=== PATIENT | male | born 1995 | race Caucasian/White ===

== ENCOUNTER 2020-01-04 08:23 | Emergency (ER) | payer OTHER ==
[2020-01-04 08:30] VITALS: BP 122/73; PULSE 93; RESP 18; TEMP 97.8
[2020-01-04] MEDS ORDERED: IBUPROFEN 600 MG TAB PO STA (08:40)
--- NOTE | 2020-01-04 08:45 | ED ---
Extremity Problem HPI - General Chief complaint: Extremity Problem,Nontraumatic Stated complaint: tingling in hands and arms Time Seen by Provider: 01/04/20 08:32 Source: patient Mode of arrival: ambulatory Limitations: no limitations - History of Present Illness Initial comments: 24 year-old male patient presents to the emergency department today for ev aluation of tingling and numbness to the bilateral hands and arms. Patient states his been going on for a little over a week. Patient states that the symptoms are located in his first 3 fingers on each hand. Denies any weakness to the hands. Denies any recent head injury. Denies neck pain. States they discomfort in his arms goes up to about the elbow region. 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 Patient denies any recent rash, fever, chills, cough, shortness of breath, chest pain, abdominal pain, nausea, vomiting, diarrhea, constipation, back pain, dizziness, hematuria, dysuria, urinary urgency, urinary frequency, headache, visual changes, or any other complaints. - Related Data Previous Rx's Medication Instructions Recorded Ibuprofen [Motrin] 600 mg PO Q8HR PRN #30 tab 01/04/20 methylPREDNISolone [Medrol Dose 4 mg PO DIRECTED #1 pack 01/04/20 Pack] Allergies Allergy/AdvReac Type Severity Reaction Status Date / Time No Known Allergies Allergy Verified 01/04/20 08:30 Review of Systems ROS Statement: Those systems with pertinent positive or pertinent negative responses have been documented in the HPI. ROS Other: All systems not noted in ROS Statement are negative. Past Medical History Past Medical History: No Reported History History of Any Multi-Drug Resistant Organisms: None Reported Past Surgical History: No Surgical Hx Reported Past Psychological History: No Psychological Hx Reported Smoking Status: Current every day smoker Past Alcohol Use History: Daily Past Drug Use History: Marijuana General Exam Limitations: no limitations General appearance: alert, in no apparent distress, other (This is a well- developed, well-nourished adult male patient in no acute distress. Vital signs upon presentation are temperature 97.8F, pulse 93, respirations 18, blood pressure 122/73, pulse ox 97% on room air.) ENT exam: Present: normal exam, normal oropharynx, mucous membranes moist Respiratory exam: Present: normal lung sounds bilaterally. Absent: respiratory distress, wheezes, rales, rhonchi, stridor Cardiovascular Exam: Present: regular rate, normal rhythm, normal heart sounds. Absent: systolic murmur, diastolic murmur, rubs, gallop, clicks GI/Abdominal exam: Present: soft, normal bowel sounds. Absent: distended, tenderness, guarding, rebound, rigid Neurological exam: Present: alert, oriented X3, CN II-XII intact, other (Strength in all 4 extremities is 5/5.) Psychiatric exam: Present: normal affect, normal mood Skin exam: Present: warm, dry, intact, normal color. Absent: rash Course Vital Signs 01/04/20 08:27 Temperature 97.8 F Pulse Rate 93 Respiratory 18 Rate Blood Pressure 122/73 O2 Sat by Pulse 97 Oximetry Medical Decision Making - Medical Decision Making 24-year-old male patient presents to the emergency department today for evaluation of tingling and numbness to the bilateral hands and arms. Physical examination did reveal normal neurovascular status, normal strength. He is afebrile normal vital signs. Denies headache and blurred vision, or double vision. He is neurologically intact with no focal deficits. We did discuss radial nerve inflammation as a cause for his symptoms. We'll start anti- inflammatory and Medrol Dosepak. To be discharged follow up with his primary care physician for recheck in 1-2 days. Return parameters were discussed in detail. He verbalizes understanding and agrees with this plan. Disposition Clinical Impression: Radial nerve compression Disposition: HOME SELF-CARE Condition: Good Instructions (If sedation given, give patient instructions): Paresthesia (ED) Additional Instructions: Take medications as directed. Follow up with your primary care physician for recheck in 1-2 days. Return to the emergency department for further evaluation for any new, worsening, or concerning symptoms. Prescriptions: methylPREDNISolone [Medrol Dose Pack] 4 mg PO DIRECTED #1 pack Ibuprofen [Motrin] 600 mg PO Q8HR PRN #30 tab PRN Reason: Pain Is patient prescribed a controlled substance at d/c from ED?: No Referrals: None,Stated [Primary Care Provider] - 1-2 days Time of Disposition: 08:42
== END 2020-01-04 09:02 | disposition home or self-care (01) ==
LOC: EC 08:23
DX: G56.30 Lesion of radial nerve, unspecified upper limb (principal); F17.200 Nicotine dependence, unspecified, uncomplicated
CPT/HCPCS: 99283

== ENCOUNTER 2023-01-18 17:30 | Emergency (ER) | payer OTHER ==
[2023-01-18 18:00] VITALS: RESP 18
--- NOTE | 2023-01-18 18:55 | ED ---
General Adult HPI - General Chief complaint: Extremity Injury, Lower Stated complaint: R foot pain Time Seen by Provider: 01/18/23 18:45 Source: patient, RN notes reviewed Mode of arrival: ambulatory Limitations: no limitations - History of Present Illness Initial comments: Patient is a pleasant 27-year-old male presenting to the emergency department wi th concerns with right heel pain. Onset of symptoms was yesterday. 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 Patient states no radiation of pain. Area of discomfort is the plantar side of the bottom of the heel, towards the middle. No weakness. No redness or swelling. No history of similar symptoms previously. No trauma. - Related Data Previous Rx's Medication Instructions Recorded Ibuprofen [Motrin] 600 mg PO Q8HR PRN #30 tab 01/04/20 methylPREDNISolone [Medrol Dose 4 mg PO DIRECTED #1 pack 01/04/20 Pack] Allergies Allergy/AdvReac Type Severity Reaction Status Date / Time No Known Allergies Allergy Verified 01/18/23 17:56 Review of Systems ROS Statement: Those systems with pertinent positive or pertinent negative responses have been documented in the HPI. ROS Other: All systems not noted in ROS Statement are negative. Constitutional: Denies: fever Eyes: Denies: eye pain ENT: Denies: ear pain Respiratory: Denies: cough Cardiovascular: Denies: chest pain Endocrine: Denies: fatigue Gastrointestinal: Denies: abdominal pain Genitourinary: Denies: dysuria Musculoskeletal: Reports: as per HPI Past Medical History Past Medical History: No Reported History History of Any Multi-Drug Resistant Organisms: None Reported Past Surgical History: No Surgical Hx Reported Past Psychological History: No Psychological Hx Reported Smoking Status: Current every day smoker Past Alcohol Use History: Occasional Past Drug Use History: Marijuana General Exam Limitations: no limitations General appearance: alert, in no apparent distress Head exam: Present: normocephalic Eye exam: Present: normal appearance Neck exam: Present: normal inspection Respiratory exam: Present: normal lung sounds bilaterally Cardiovascular Exam: Present: regular rate, normal rhythm Extremities exam: Present: tenderness (Mild tenderness on the plantar side of the right mid heel. No swelling. No erythema. Distally the extremity is neurovascular intact) Neurological exam: Present: alert. Absent: motor sensory deficit Psychiatric exam: Present: normal affect, normal mood Skin exam: Present: normal color Course Vital Signs 01/18/23 17:56 Temperature 98.4 F Pulse Rate 102 H Respiratory 18 Rate Blood Pressure 121/81 O2 Sat by Pulse 99 Oximetry Medical Decision Making - Medical Decision Making Was pt. sent in by a medical professional or institution ([facility], [facility], urgent care, hospital, or retirement...) When possible be specific @ -No Did you speak to anyone other than the patient for history (EMS, parent, family, police, friend...)? What history was obtained from this source @ -No Did you review nursing and triage notes (agree or disagree)? Why? @ -I reviewed and agree with nursing and triage notes Were old charts reviewed (outside hosp., previous admission, EMS record, old EKG, old radiological studies, urgent care reports/EKG's, retirement records)? Report findings @ -No old charts were reviewed Differential Diagnosis (chest pain, altered mental status, abdominal pain women, abdominal pain men, vaginal bleeding, weakness, fever, dyspnea, syncope, headache, dizziness, GI bleed, back pain, seizure, CVA, palpatations, mental health, musculoskeletal)? @ -not applicable EKG interpreted by me (3pts min.). @ -As above X-rays interpreted by me (1pt min.). @ -Foot x-ray does not show acute abnormality CT interpreted by me (1pt min.). @ -None done U/S interpreted by me (1pt. min.). @ -None done What testing was considered but not performed or refused? (CT, X-rays, U/S, labs)? Why? @ -None What meds were considered but not given or refused? Why? @ -None Did you discuss the management of the patient with other professionals (professionals i.e. [facility], [facility], lab, RT, psych nurse, licensed social worker, director of financial planning, teacher, freedom of information officer, case assembler)? Give summary @ -No Was smoking cessation discussed for >3mins.? @ -No Was critical care preformed (if so, how long)? @ -No Were there social determinants of health that impacted care today? How? (Homelessness, low income, unemployed, alcoholism, drug addiction, transportation, low edu. Level, literacy, decrease access to med. care, assisted, rehab)? @ -No Was there de-escalation of care discussed even if they declined (Discuss DNR or withdrawal of care, Hospice)? DNR status @ -No What co-morbidities impacted this encounter? (DM, HTN, Smoking, COPD, CAD, Cancer, CVA, ARF, Chemo, Hep., AIDS, mental health diagnosis, sleep apnea, morbid obesity)? @ -None Was patient admitted / discharged? Hospital course, mention meds given and route, prescriptions, significant lab abnormalities, going to OR and other pertinent info. @ -Patient will be discharged. Patient given work no. Patient advised [id number] anti-inflammatory such as Motrin. Patient also advised foot orthotic. Undiagnosed new problem with uncertain prognosis? @ -No Drug Therapy requiring intensive monitoring for toxicity (Heparin, Nitro, Insulin, Cardizem)? @ -No Were any procedures done? @ -No Diagnosis/symptom? @ -Foot pain Acute, or Chronic, or Acute on Chronic? @ -Acute Uncomplicated (without systemic symptoms) or Complicated (systemic symptoms)? @ -default Side effects of treatment? @ -No Exacerbation, Progression, or Severe Exacerbation? @ -No Poses a threat to life or bodily function? How? (Chest pain, [place], [place], pneumonia, PE, COPD, DKA, ARF, appy, cholecystitis, CVA, Diverticulitis, Homicidal, Suicidal, threat to staff... and all critical care pts) @ -No Disposition Clinical Impression: Foot pain, right Disposition: HOME SELF-CARE Condition: Stable Instructions (If sedation given, give patient instructions): Plantar Fasciitis (ED), Arthralgia (ED), Heel Spur (ED) Additional Instructions: Rest foot. Use orthotics for your work boots. [id number] anti- inflammatory such as Motrin. Please do follow-up with primary care physician in the next couple days for recheck. Return for increased pain, swelling, worsening or change in symptoms or other concerns. Is patient prescribed a controlled substance at d/c from ED?: No Referrals: Ramsey Pickens MD [STAFF PHYSICIAN] - 1-2 days Forms: Work/School Release Time of Disposition: 19:36
--- NOTE | 2023-01-18 19:25 | XR ---
EXAMINATION TYPE: XR foot complete RT DATE OF EXAM: 01/18/2023 7:05 PM INDICATION: Patient age:Male; 27 years old; Reason for study: heel pain; COMPARISON: None TECHNIQUE: The right foot was examined in the AP, oblique, and lateral projections. FINDINGS: No evidence of any acute osseous pathology. No evidence of soft tissue swelling. Joints are preserve d. IMPRESSION: No evidence of acute fracture.
[2023-01-18 19:47] VITALS: BP 118/74; PULSE 95; TEMP 98.1
== END 2023-01-18 19:47 | disposition home or self-care (01) ==
LOC: EC 17:30
DX: M79.671 Pain in right foot (principal); F17.200 Nicotine dependence, unspecified, uncomplicated; F12.90 Cannabis use, unspecified, uncomplicated
CPT/HCPCS: 99283

== ENCOUNTER 2023-03-22 16:27 | Emergency (ER) | payer OTHER ==
--- NOTE | 2023-03-22 16:39 | ED ---
General Adult HPI - General Source: patient Mode of arrival: ambulatory <Oc Ayala - Last Filed: 03/22/23 16:39> - History of Present Illness Quality: aching Consistency: constant Improves with: none Worsens with: none Associated Symptoms: chest pain Treatments Prior to Arrival: none <Ravinder Suresh - Last Filed: 03/25/23 21:47> - General Chief complaint: Recheck/Abnormal Lab/Rx Stated complaint: High BP - History of Present Illness Initial comments: 27 year old male with chief complaint tingling. Patient states today he started to experience numbness in both his arms. States that he was at rest when he started to experience this. Denies any recent injury or trauma. Also notes some heaviness in the middle of his chest. (Oc Ayala) This is a 27-year-old male to the emergency department for evaluation tingling numbness to having both arms headache occasionally with dizziness. Patient believes he is having significantly elevated blood pressure has a new diagnosis and did take his blood pressure be elevated at home. Patient became increasingly anxious presents to the ER for evaluation treatment of blood pressure (Ravinder Suresh) - Related Data Previous Rx's Medication Instructions Recorded Ibuprofen [Motrin] 600 mg PO Q8HR PRN #30 tab 01/04/20 methylPREDNISolone [Medrol Dose 4 mg PO DIRECTED #1 pack 01/04/20 Pack] hydroCHLOROthiazide [Hydrodiuril] 25 mg PO DAILY #60 tab 03/22/23 Allergies Allergy/AdvReac Type Severity Reaction Status Date / Time No Known Allergies Allergy Verified 03/22/23 16:35 Review of Systems ROS Other: All systems not noted in ROS Statement are negative. <Oc Ayala - Last Filed: 03/22/23 16:39> ROS Other: All systems not noted in ROS Statement are negative. <Ravinder Suresh - Last Filed: 03/25/23 21:47> ROS Statement: Those systems with pertinent positive or pertinent negative responses have been documented in the HPI. Past Medical History Past Medical History: No Reported History History of Any Multi-Drug Resistant Organisms: None Reported Past Surgical History: No Surgical Hx Reported Past Psychological History: No Psychological Hx Reported Smoking Status: Current every day smoker Past Alcohol Use History: Occasional Past Drug Use History: Marijuana <Oc Ayala - Last Filed: 03/22/23 16:39> General Exam Limitations: no limitations General appearance: alert, in no apparent distress, obese Head exam: Present: normal inspection Eye exam: Present: normal appearance Neck exam: Present: normal inspection Extremities exam: Present: normal inspection Back exam: Present: normal inspection Neurological exam: Present: alert <Oc Ayala - Last Filed: 03/22/23 16:39> General appearance: alert, in no apparent distress Head exam: Present: atraumatic, normocephalic, normal inspection Eye exam: Present: normal appearance, PERRL, EOMI. Absent: scleral icterus, conjunctival injection, periorbital swelling ENT exam: Present: normal exam, mucous membranes moist Neck exam: Present: normal inspection. Absent: tenderness, meningismus, lymphadenopathy Respiratory exam: Present: normal lung sounds bilaterally. Absent: respiratory distress, wheezes, rales, rhonchi, stridor Cardiovascular Exam: Present: regular rate, normal rhythm, normal heart sounds. Absent: systolic murmur, diastolic murmur, rubs, gallop, clicks GI/Abdominal exam: Present: soft, normal bowel sounds. Absent: distended, tenderness, guarding, rebound, rigid Extremities exam: Present: normal inspection, full ROM, normal capillary refill. Absent: tenderness, pedal edema, joint swelling, calf tenderness Back exam: Present: normal inspection Neurological exam: Present: alert, oriented X3, CN II-XII intact Psychiatric exam: Present: normal affect, normal mood Skin exam: Present: warm, dry, intact, normal color. 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 sent in by a medical professional or institution ([facility], [facility], urgent c are, hospital, or jail...) When possible be specific @ -no Did you speak to anyone other than the patient for history (EMS, parent, family, police, friend...)? What history was obtained from this source @ -no Did you review nursing and triage notes (agree or disagree)? Why? @ -agree Are old charts reviewed (outside hosp., previous admission, EMS record, old EKG, old radiological studies, urgent care reports/EKG's, jail records)? Report findings @ -yes Differential Diagnosis (chest pain, altered mental status, abdominal pain women, abdominal pain men, vaginal bleeding, weakness, fever, dyspnea, syncope, headache, dizziness, GI bleed, back pain, seizure, CVA, palpatations, mental health, musculoskeletal)? @ -prior EKG interpreted by me (3pts min.). @ -yes X-rays interpreted by me (1pt min.). @ -yes CT interpreted by me (1pt min.). @ -no U/S interpreted by me (1pt. min.). @ -no What testing was considered but not performed or refused? (CT, X-rays, U/S, labs)? Why? @ -none What meds were considered but not given or refused? Why? @ -none Did you discuss the management of the patient with other professionals (professionals i.e. [facility], [facility], lab, RT, psych nurse, mental health social worker, manager regional, teacher, patient safety officer, disease case manager)? Give summary @ -no Was smoking cessation discussed for >3mins.? @ -no Was critical care preformed (if so, how long)? @ -no Were there social determinants of health that impacted care today? How? (Homelessness, low income, unemployed, alcoholism, drug addiction, transportation, low edu. Level, literacy, decrease access to med. care, retirement, rehab)? @ -none Was there de-escalation of care discussed even if they declined (Discuss DNR or withdrawal of care, Hospice)? DNR status @ -no What co-morbidities impacted this encounter? (DM, HTN, Smoking, COPD, CAD, Cancer, CVA, ARF, Chemo, Hep., AIDS, mental health diagnosis, sleep apnea, morbid obesity)? @ -none Was patient admitted / discharged? Hospital course, mention meds given and route, prescriptions, significant lab abnormalities, going to OR and other pertinent info. @ - 27 male to the emergency department for evaluation of elevated blood pressure, states he hasn't been feeling significantly well. Although he has no current complaints here in the ER. Patient be started on antihypertensive and can be discharged home Discharge Undiagnosed new problem with uncertain prognosis? @ -no Drug Therapy requiring intensive monitoring for toxicity (Heparin, Nitro, Ins ulin, Cardizem)? @ -no Were any procedures done? @ -no Diagnosis/symptom? @ -Hypertension Acute, or Chronic, or Acute on Chronic? @ -Acute Uncomplicated (without systemic symptoms) or Complicated (systemic symptoms)? @ -Complicated Side effects of treatment? @ -no Exacerbation, Progression, or Severe Exacerbation? @ -exacerbation Poses a threat to life or bodily function? How? (Chest pain, [place], NH, pneumonia, PE, COPD, DKA, ARF, appy, cholecystitis, CVA, Diverticulitis, Homicidal, Suicida l, threat to staff... and all critical care pts) @ -yes (Ravinder Suresh) Reevaluation #5: Differential Chest Pain: Stable Angina, Unstable Angina, STEMI, NSTEMI Aortic Dissection, Pneumothorax, Musculoskeletal, Esophageal Spasm GERD, Cholecystitis, Pancreatitis, Zoster, this is not meant to be an all-inclusive list. (Ravinder Suresh) EKG Findings - EKG Comments: EKG Findings:: EKG is sinus tachycardia 110 PA 149 QRS 85 QTc 400 - EKG Results: EKG: interpreted by ERMD <Ravinder Suresh - Last Filed: 03/25/23 21:47> Medical Decision Making <Oc Ayala - Last Filed: 03/22/23 16:39> - Lab Data Result diagrams: 03/22/23 16:40 03/22/23 16:40 - EKG Data -: EKG Interpreted by Ne - Radiology Data Radiology results: report reviewed (Chest x-rays negative for acute disease), image reviewed <Ravinder Suresh - Last Filed: 03/25/23 21:47> - Medical Decision Making Quicknote portion performed. Signed Oc Ayala PA-C (Oc Ayala) 27 male to the emergency department for evaluation of hypertension. Patient is started on antihypertensive in the ER, follow up with primary care. (Stephanie Suresh) - Lab Data Lab Results 03/22/23 03/22/23 03/22/23 Range/Units 16:40 16:40 16:40 WBC 14.2 H (3.8-10.6) k/uL RBC 5.48 (4.30-5.90) m/uL Hgb 16.7 (13.0-17.5) gm/dL Hct 48.3 (39.0-53.0) % MCV 88.1 (80.0-100.0) fL MCH 30.5 (25.0-35.0) pg MCHC 34.6 (31.0-37.0) g/dL RDW 12.5 (11.5-15.5) % Plt Count 326 (150-450) k/uL MPV 7.2 Neutrophils % 81 % Lymphocytes % 13 % Monocytes % 4 % Eosinophils % 1 % Basophils % 0 % Neutrophils # 11.6 H (1.3-7.7) k/uL Lymphocytes # 1.8 (1.0-4.8) k/uL Monocytes # 0.6 (0-1.0) k/uL Eosinophils # 0.2 (0-0.7) k/uL Basophils # 0.0 (0-0.2) k/uL PT (9.0-12.0) sec INR (<1.2) APTT (22.0-30.0) sec D-Dimer <0.17 (<0.60) mg/L FEU Sodium 136 L (137-145) mmol/L Potassium 4.0 (3.5-5.1) mmol/L Chloride 104 (98-107) mmol/L Carbon Dioxide 23 (22-30) mmol/L Anion Gap 9 mmol/L BUN 7 L (9-20) mg/dL Creatinine 0.84 (0.66-1.25) mg/dL Est GFR (CKD-EPI)AfAm >90 (>60 ml/min/1.73 sqM) Est GFR (CKD-EPI)NonAf >90 (>60 ml/min/1.73 sqM) Glucose 108 H (74-99) mg/dL Calcium 9.6 (8.4-10.2) mg/dL Magnesium 1.4 L (1.6-2.3) mg/dL Total Bilirubin 0.7 (0.2-1.3) mg/dL AST 62 H (17-59) U/L ALT 71 H (4-49) U/L Alkaline Phosphatase 122 (38-126) U/L Troponin I (0.000-0.034) ng/mL Total Protein 7.5 (6.3-8.2) g/dL Albumin 4.4 (3.5-5.0) g/dL Urine Color Urine Appearance (Clear) Urine pH (5.0-8.0) Ur Specific [place] (1.001-1.035) Urine Protein (Negative) Urine Glucose (UA) (Negative) Urine Ketones (Negative) Urine Blood (Negative) Urine Nitrite (Negative) Urine Bilirubin (Negative) Urine Urobilinogen (<2.0) mg/dL Ur Leukocyte Esterase (Negative) Influenza Type A (PCR) (Not Detectd) Influenza Type B (PCR) (Not Detectd) RSV (PCR) (Not Detectd) SARS-CoV-2 (PCR) (Not Detectd) 03/22/23 03/22/23 03/22/23 Range/Units 16:40 19:23 20:58 WBC (3.8-10.6) k/uL RBC (4.30-5.90) m/uL Hgb (13.0-17.5) gm/dL Hct (39.0-53.0) % MCV (80.0-100.0) fL MCH (25.0-35.0) pg MCHC (31.0-37.0) g/dL RDW (11.5-15.5) % Plt Count (150-450) k/uL MPV Neutrophils % % Lymphocytes % % Monocytes % % Eosinophils % % Basophils % % Neutrophils # (1.3-7.7) k/uL Lymphocytes # (1.0-4.8) k/uL Monocytes # (0-1.0) k/uL Eosinophils # (0-0.7) k/uL Basophils # (0-0.2) k/uL PT (9.0-12.0) sec INR (<1.2) APTT (22.0-30.0) sec D-Dimer (<0.60) mg/L FEU Sodium (137-145) mmol/L Potassium (3.5-5.1) mmol/L Chloride (98-107) mmol/L Carbon Dioxide (22-30) mmol/L Anion Gap mmol/L BUN (9-20) mg/dL Creatinine (0.66-1.25) mg/dL Est GFR (CKD-EPI)AfAm (>60 ml/min/1.73 sqM) Est GFR (CKD-EPI)NonAf (>60 ml/min/1.73 sqM) Glucose (74-99) mg/dL Calcium (8.4-10.2) mg/dL Magnesium (1.6-2.3) mg/dL Total Bilirubin (0.2-1.3) mg/dL AST (17-59) U/L ALT (4-49) U/L Alkaline Phosphatase (38-126) U/L Troponin I <0.012 (0.000-0.034) ng/mL Total Protein (6.3-8.2) g/dL Albumin (3.5-5.0) g/dL Urine Color Yellow Urine Appearance Clear (Clear) Urine pH 6.0 (5.0-8.0) Ur Specific [place] 1.021 (1.001-1.035) Urine Protein Trace H (Negative) Urine Glucose (UA) Negative (Negative) Urine Ketones Negative (Negative) Urine Blood Negative (Negative) Urine Nitrite Negative (Negative) Urine Bilirubin Negative (Negative) Urine Urobilinogen 2.0 (<2.0) mg/dL Ur Leukocyte Esterase Negative (Negative) Influenza Type A (PCR) Not Detected (Not Detectd) Influenza Type B (PCR) Not Detected (Not Detectd) RSV (PCR) Not Detected (Not Detectd) SARS-CoV-2 (PCR) Not Detected (Not Detectd) 03/22/23 03/22/23 Range/Units 21:02 21:02 WBC (3.8-10.6) k/uL RBC (4.30-5.90) m/uL Hgb (13.0-17.5) gm/dL Hct (39.0-53.0) % MCV (80.0-100.0) fL MCH (25.0-35.0) pg MCHC (31.0-37.0) g/dL RDW (11.5-15.5) % Plt Count (150-450) k/uL MPV Neutrophils % % Lymphocytes % % Monocytes % % Eosinophils % % Basophils % % Neutrophils # (1.3-7.7) k/uL Lymphocytes # (1.0-4.8) k/uL Monocytes # (0-1.0) k/uL Eosinophils # (0-0.7) k/uL Basophils # (0-0.2) k/uL PT 10.5 (9.0-12.0) sec INR 1.0 (<1.2) APTT 24.3 (22.0-30.0) sec D-Dimer (<0.60) mg/L FEU Sodium (137-145) mmol/L Potassium (3.5-5.1) mmol/L Chloride (98-107) mmol/L Carbon Dioxide (22-30) mmol/L Anion Gap mmol/L BUN (9-20) mg/dL Creatinine (0.66-1.25) mg/dL Est GFR (CKD-EPI)AfAm (>60 ml/min/1.73 sqM) Est GFR (CKD-EPI)NonAf (>60 ml/min/1.73 sqM) Glucose (74-99) mg/dL Calcium (8.4-10.2) mg/dL Magnesium (1.6-2.3) mg/dL Total Bilirubin (0.2-1.3) mg/dL AST (17-59) U/L ALT (4-49) U/L Alkaline Phosphatase (38-126) U/L Troponin I <0.012 (0.000-0.034) ng/mL Total Protein (6.3-8.2) g/dL Albumin (3.5-5.0) g/dL Urine Color Urine Appearance (Clear) Urine pH (5.0-8.0) Ur Specific [place] (1.001-1.035) Urine Protein (Negative) Urine Glucose (UA) (Negative) Urine Ketones (Negative) Urine Blood (Negative) Urine Nitrite (Negative) Urine Bilirubin (Negative) Urine Urobilinogen (<2.0) mg/dL Ur Leukocyte Esterase (Negative) Influenza Type A (PCR) (Not Detectd) Influenza Type B (PCR) (Not Detectd) RSV (PCR) (Not Detectd) SARS-CoV-2 (PCR) (Not Detectd) Disposition <Oc Ayala - Last Filed: 03/22/23 16:39> Is patient prescribed a controlled substance at d/c from ED?: No Time of Disposition: 21:10 <Ravinder Suresh - Last Filed: 03/25/23 21:47> Clinical Impression: Hypertension Disposition: HOME SELF-CARE Condition: Good Instructions (If sedation given, give patient instructions): Hypertension (ED) Prescriptions: hydroCHLOROthiazide [Hydrodiuril] 25 mg PO DAILY #60 tab Referrals: Bereket Dias MD [STAFF PHYSICIAN] - 1-2 days
[2023-03-22 17:19] LABS: Basophils % (A) 0 %; Eosinophils # (A) 0.2 k/uL (0-0.7); Eosinophils % (A) 1 %; HCT 48.3 % (39.0-53.0); HGB 16.7 gm/dL (13.0-17.5); Lymphocytes # (A) 1.8 k/uL (1.0-4.8); Lymphocytes % (A) 13 %; MCH 30.5 pg (25.0-35.0); MCHC 34.6 g/dL (31.0-37.0); MCV 88.1 fL (80.0-100.0); Mean Platelet Volume 7.2; Monocytes # (A) 0.6 k/uL (0-1.0); Monocytes % (A) 4 %; Neutrophils # (A) 11.6 k/uL (1.3-7.7); Neutrophils % (A) 81 %; Platelet Count 326 k/uL (150-450); RBC 5.48 m/uL (4.30-5.90); RDW 12.5 % (11.5-15.5); WBC 14.2 k/uL (3.8-10.6)
[2023-03-22 17:40] LABS: ALT 71 U/L (4-49); AST 62 U/L (17-59); African American GFR (CKD) >90 (>60 ml/min/1.73 sqM); Albumin 4.4 g/dL (3.5-5.0); Alkaline Phosphatase 122 U/L (38-126); Anion Gap 9 mmol/L; Blood Urea Nitrogen 7 mg/dL (9-20); Calcium 9.6 mg/dL (8.4-10.2); Carbon Dioxide 23 mmol/L (22-30); Chloride 104 mmol/L (98-107); Glucose 108 mg/dL (74-99); Magnesium 1.4 mg/dL (1.6-2.3); Non-African American GFR(CKD) >90 (>60 ml/min/1.73 sqM); Sodium 136 mmol/L (137-145); Total Bilirubin 0.7 mg/dL (0.2-1.3); Total Protein 7.5 g/dL (6.3-8.2)
--- NOTE | 2023-03-22 17:49 | XR ---
EXAMINATION TYPE: XR chest 2V DATE OF EXAM: 03/22/2023 5:16 PM CLINICAL INDICATION:Male, 27 years old with history of Chest Pain COMPARISON: Chest radiographs from 03/22/2023 TECHNIQUE: XR chest 2V Frontal and lateral views of the chest. FINDINGS: Lungs/Pleura: There is no evidence of pleural effusion, focal consolidation, or pneumothorax. Pulmonary vascularity: Unremarkable. Heart/mediastinum: Cardiomediastinal silhouette is unremarkable. Musculoskeletal: No acute osseous pathology. IMPRESSION: No acute cardiopulmonary disease/process.
[2023-03-22 21:08] VITALS: TEMP 98.2
[2023-03-22 21:15] LABS: Appearance,Urine Clear (Clear); Bilirubin,Urine Negative (Negative); Blood,Urine Negative (Negative); Color,Urine Yellow; Glucose,Urine (UA) Negative (Negative); Ketones,Urine Negative (Negative); Leukocyte Esterase,Urine Negative (Negative); Nitrite,Urine Negative (Negative); Protein,Urine Trace (Negative); Specific Gravity,Urine 1.021 (1.001-1.035)
[2023-03-22] MEDS ORDERED: hydroCHLOROthiazide 25 MG TAB PO STA (21:19)
[2023-03-22] MEDS ORDERED: MAGNESIUM OXIDE 400 MG TAB PO STA ×2 (21:23)
[2023-03-22 21:24] LABS: Partial Thromboplastin Time 24.3 sec (22.0-30.0); Prothrombin Time 10.5 sec (9.0-12.0)
[2023-03-22 22:24] VITALS: BP 139/94; PULSE 87; RESP 18
== END 2023-03-22 22:24 | disposition home or self-care (01) ==
LOC: EC 16:27
DX: I10 Essential (primary) hypertension (principal); F12.90 Cannabis use, unspecified, uncomplicated; F17.200 Nicotine dependence, unspecified, uncomplicated; Z20.822 Contact with and (suspected) exposure to COVID-19
CPT/HCPCS: 36415; 71046; 80053; 81003; 83735; 84484; 85025; 85379; 85610; 85730; 87636; 93005; 99284

== ENCOUNTER 2023-07-10 17:34 | Emergency (ER) | payer SELFPAY ==
--- NOTE | 2023-07-10 18:06 | ED ---
General Adult HPI - General Source: patient Mode of arrival: ambulatory Limitations: no limitations <Vinod Gupta - Last Filed: 07/10/23 19:43> <Alondra Fregoso - Last Filed: 07/10/23 23:48> - General Chief complaint: Abdominal Pain Stated complaint: Groin Pain Time Seen by Provider: 07/10/23 17:40 - History of Present Illness Initial comments: Dictation was produced using [employer] dictation software. please excuse any grammatical, word or spelling errors. Chief Complaint: 27-year-old male presents with 1 week of abdominal pain and testicular pain History of Present Illness: Patient 27-year-old male who states that for the last week she's been having intermittent episodes of abdominal pain and testicular pain states that his pain seems to be Colin's abdomen rate is down his testicle however he does report that his testicles feel slightly sore. Patient denies any nausea or vomiting. No fever or chills. States that his symptoms seem to be alleviated with lying flat. Seems to bother him more whenever he is in a sitting position. No history of abdominal surgery. The ROS documented in this emergency department record has been reviewed and confirmed by me. Those systems with pertinent positive or negative responses have been documented in the HPI. All other systems are other negative and/or noncontributory. (Vinod Gupta) - Related Data Previous Rx's Medication Instructions Recorded Ibuprofen [Motrin] 600 mg PO Q8HR PRN #30 tab 01/04/20 methylPREDNISolone [Medrol Dose 4 mg PO DIRECTED #1 pack 01/04/20 Pack] hydroCHLOROthiazide [Hydrodiuril] 25 mg PO DAILY #60 tab 03/22/23 Allergies Allergy/AdvReac Type Severity Reaction Status Date / Time No Known Allergies Allergy Verified 03/22/23 16:35 Review of Systems ROS Other: All systems not noted in ROS Statement are negative. <Vinod Gupta - Last Filed: 07/10/23 19:43> ROS Other: All systems not noted in ROS Statement are negative. <Alondra Fregoso - Last Filed: 07/10/23 23:48> ROS Statement: Those systems with pertinent positive or pertinent negative responses have been documented in the HPI. Past Medical History Past Medical History: Hypertension History of Any Multi-Drug Resistant Organisms: None Reported Past Surgical History: No Surgical Hx Reported Past Psychological History: No Psychological Hx Reported Smoking Status: Current every day smoker Past Alcohol Use History: Occasional Past Drug Use History: Marijuana <Vinod Gupta - Last Filed: 07/10/23 19:43> General Exam Limitations: no limitations <Vinod Gupta - Last Filed: 07/10/23 19:43> - General Exam Comments Initial Comments: PHYSICAL EXAM: General Impression: Alert and oriented x3, not in acute distress HEENT: Normocephalic atraumatic, extra-ocular movements intact, pupils equal and reactive to light bilaterally, mucous membranes moist. Cardiovascular: Heart regular rate and rhythm Chest: Able to complete full sentences, no retractions, no tachypnea Abdomen: abdomen soft, non-tender, non-distended, no organomegaly Musculoskeletal: Pulses present and equal in all extremities, no peripheral edema Motor: no focal deficits noted Neurological: CN II-XII grossly intact, no focal motor or sensory deficits noted Skin: Intact with no visualized rashes Psych: Normal affect and mood : Symmetrical testicle, no abnormal testicular lie, no scrotal abnormalities, no groint mass w valsalva (Vinod Gupta) Course Vital Signs 07/10/23 07/10/23 17:35 21:09 Temperature 98.8 F 98.4 F Pulse Rate 90 79 Respiratory 16 16 Rate Blood Pressure 155/98 142/89 O2 Sat by Pulse 99 98 Oximetry Medical Decision Making - Lab Data Result diagrams: 07/10/23 18:33 07/10/23 18:33 <Vinod Gupta - Last Filed: 07/10/23 19:43> - Lab Data Result diagrams: 07/10/23 18:33 07/10/23 18:33 <Alondra Fregoso - Last Filed: 07/10/23 23:48> - Medical Decision Making Was pt. sent in by a medical professional or institution (, PA, FORCE DISPATCHER, urgent care, hospital, or intermediate...) When possible be specific @ -No Did you speak to anyone other than the patient for history (EMS, parent, family, police, friend...)? What history was obtained from this source @ -No Did you review nursing and triage notes (agree or disagree)? Why? @ -I reviewed and agree with nursing and triage notes Were old charts reviewed (outside hosp., previous admission, EMS record, old EKG, old radiological studies, urgent care reports/EKG's, intermediate records)? Report findings @ -No old charts were reviewed Differential Diagnosis (chest pain, altered mental status, abdominal pain women, abdominal pain men, vaginal bleeding, musculoskeletal, weakness, fever, dyspnea, syncope, headache, dizziness, GI bleed, back pain, seizure, CVA, palpatations, mental health)? @ -Differential Abdominal Pain Men: Appendicitis, cholecystitis, diverticulosis, ischemic bowel, pancreatitis, hepatitis, UTI, gastroenteritis, AAA, incarcerated hernia, bowel obstruction, constipation, inflammatory bowel, hepatitis, peptic ulcer disease, splenic infarction, perforated viscus, testicular torsion, this is not meant to be an all-inclusive list EKG interpreted by me (3pts min.). @ -None done X-rays interpreted by me (1pt min.). @ -Abdominal x-rays no acute CT interpreted by me (1pt min.). @ -None done U/S interpreted by me (1pt. min.). @ -None done What testing was considered but not performed or refused? (CT, X-rays, U/S, labs)? Why? @ -None What meds were considered but not given or refused? Why? @ -None Did you discuss the management of the patient with other professionals (professionals i.e. , PA, FORCE DISPATCHER, lab, RT, psych nurse, social insurance administrator, concrete wall grinder operator, teacher, youth liaison officer, keycase assembler)? Give summary @ -No Was smoking cessation discussed for >3mins.? @ -No Was critical care preformed (if so, how long)? @ -No Were there social determinants of health that impacted care today? How? (Homelessness, low income, unemployed, alcoholism, drug addiction, transportation, low edu. Level, literacy, decrease access to med. care, [facility], rehab)? @ -No Was there de-escalation of care discussed even if they declined (Discuss DNR or withdrawal of care, Hospice)? DNR status @ -No What co-morbidities impacted this encounter? (DM, HTN, Smoking, COPD, CAD, Cancer, CVA, ARF, Chemo, Hep., AIDS, mental health diagnosis, sleep apnea, morbid obesity)? @ -None Was patient admitted / discharged? Hospital course, mention meds given and route, prescriptions, significant lab abnormalities, going to OR and other pertinent info. @ -27-year-old male presents to the emergency department for very vague atypical symptoms of abdominal pain. Vital signs are stable. His abdomen is soft. He does complain of a component of testicular pain. No abnormalities on physical exam. Laboratory evaluation obtained. CBC metabolic panel is unremarkable. Abdominal labs are negative. Abdominal x-rays negative. Pending scrotal ultrasound. Patient care will be signed out to Dr. Fregoso for follow-up of ultrasound and disposition planning. Undiagnosed new problem with uncertain prognosis? @ -No Drug Therapy requiring intensive monitoring for toxicity (Heparin, Nitro, Insulin, Cardizem)? @ -No Were any procedures done? @ -No Diagnosis/symptom? Acute, or Chronic, or Acute on Chronic? Uncomplicated (w ithout systemic symptoms) or Complicated (systemic symptoms)? @ -Abdominal Pain, no high-risk features Side effects of treatment? @ -No Exacerbation, Progression, or Severe Exacerbation? @ -No Poses a threat to life or bodily function? How? (Chest pain, [place], [place], pneumonia, PE, COPD, DKA, ARF, appy, cholecystitis, CVA, Diverticulitis, Homicidal, Suicidal, threat to staff... and all critical care pts) @ -No (Vinod Gupta) Patient signed out to me pending ultrasound. Ultrasound demonstrates varicoceles. No signs of torsion. Results are discussed with the patient. Recommended tightfitting briefs. Minimize heavy lifting at this time while acute exacerbation of pain. Follow-up with his primary care doctor for further testing return for any new or worsening symptoms. Patient agreeable and was discharged in stable condition (Alondra Fregoso) - Lab Data Lab Results 07/10/23 07/10/23 07/10/23 Range/Units 18:33 18:33 19:53 WBC 9.8 (3.8-10.6) k/uL RBC 6.00 H (4.30-5.90) m/uL Hgb 17.2 (13.0-17.5) gm/dL Hct 50.7 (39.0-53.0) % MCV 84.6 (80.0-100.0) fL MCH 28.7 (25.0-35.0) pg MCHC 33.9 (31.0-37.0) g/dL RDW 12.1 (11.5-15.5) % Plt Count 350 (150-450) k/uL MPV 7.0 Neutrophils % 67 % Lymphocytes % 23 % Monocytes % 5 % Eosinophils % 1 % Basophils % 1 % Neutrophils # 6.6 (1.3-7.7) k/uL Lymphocytes # 2.3 (1.0-4.8) k/uL Monocytes # 0.5 (0-1.0) k/uL Eosinophils # 0.1 (0-0.7) k/uL Basophils # 0.1 (0-0.2) k/uL Sodium 138 (137-145) mmol/L Potassium 3.5 (3.5-5.1) mmol/L Chloride 99 (98-107) mmol/L Carbon Dioxide 26 (22-30) mmol/L Anion Gap 13 mmol/L BUN 8 L (9-20) mg/dL Creatinine 0.79 (0.66-1.25) mg/dL Est GFR (CKD-EPI)AfAm >90 (>60 ml/min/1.73 sqM) Est GFR (CKD-EPI)NonAf >90 (>60 ml/min/1.73 sqM) Glucose 102 H (74-99) mg/dL Calcium 10.2 (8.4-10.2) mg/dL Total Bilirubin 0.7 (0.2-1.3) mg/dL AST 28 (17-59) U/L ALT 32 (4-49) U/L Alkaline Phosphatase 103 (38-126) U/L Total Protein 8.4 H (6.3-8.2) g/dL Albumin 4.8 (3.5-5.0) g/dL Urine Color Light Yellow Urine Appearance Clear (Clear) Urine pH 6.0 (5.0-8.0) Ur Specific [place] 1.009 (1.001-1.035) Urine Protein Negative (Negative) Urine Glucose (UA) Negative (Negative) Urine Ketones Negative (Negative) Urine Blood Negative (Negative) Urine Nitrite Negative (Negative) Urine Bilirubin Negative (Negative) Urine Urobilinogen <2.0 (<2.0) mg/dL Ur Leukocyte Esterase Negative (Negative) Disposition <Vinod Gupta - Last Filed: 07/10/23 19:43> Is patient prescribed a controlled substance at d/c from ED?: No Time of Disposition: 20:55 <ZenobiaAlondra Kayden - Last Filed: 07/10/23 23:48> Clinical Impression: Abdominal pain, Varicocele Disposition: HOME SELF-CARE Condition: Stable Instructions (If sedation given, give patient instructions): Varicocele (ED) Additional Instructions: Wear tight fitting briefs. No heavy lifting while you have the pain. Follow up with the urologist. Return for any new or worsening symptoms. Referrals: None,Stated [Primary Care Provider] - 1-2 days Jeffery Shi MD [STAFF PHYSICIAN] - 1-2 days
[2023-07-10 18:21] VITALS: RESP 16
[2023-07-10 18:44] LABS: Basophils # (A) 0.1 k/uL (0-0.2); Basophils % (A) 1 %; Eosinophils # (A) 0.1 k/uL (0-0.7); Eosinophils % (A) 1 %; HCT 50.7 % (39.0-53.0); HGB 17.2 gm/dL (13.0-17.5); Lymphocytes # (A) 2.3 k/uL (1.0-4.8); Lymphocytes % (A) 23 %; MCH 28.7 pg (25.0-35.0); MCHC 33.9 g/dL (31.0-37.0); MCV 84.6 fL (80.0-100.0); Monocytes # (A) 0.5 k/uL (0-1.0); Monocytes % (A) 5 %; Neutrophils # (A) 6.6 k/uL (1.3-7.7); Neutrophils % (A) 67 %; Platelet Count 350 k/uL (150-450); RDW 12.1 % (11.5-15.5); WBC 9.8 k/uL (3.8-10.6)
[2023-07-10 18:51] LABS: ALT 32 U/L (4-49); AST 28 U/L (17-59); African American GFR (CKD) >90 (>60 ml/min/1.73 sqM); Albumin 4.8 g/dL (3.5-5.0); Alkaline Phosphatase 103 U/L (38-126); Anion Gap 13 mmol/L; Blood Urea Nitrogen 8 mg/dL (9-20); Calcium 10.2 mg/dL (8.4-10.2); Carbon Dioxide 26 mmol/L (22-30); Chloride 99 mmol/L (98-107); Glucose 102 mg/dL (74-99); Non-African American GFR(CKD) >90 (>60 ml/min/1.73 sqM); Potassium 3.5 mmol/L (3.5-5.1); Sodium 138 mmol/L (137-145); Total Bilirubin 0.7 mg/dL (0.2-1.3); Total Protein 8.4 g/dL (6.3-8.2)
--- NOTE | 2023-07-10 19:05 | XR ---
EXAMINATION TYPE: XR abdomen 1V DATE OF EXAM: 07/10/2023 6:20 PM CLINICAL INDICATION:Male, 27 years old with history of abdominal pain; [facility] COMPARISON: None. TECHNIQUE: One radiographic view of the abdomen was obtained. FINDINGS: The bowel gas pattern is nonspecific without dilated loops of small or large bowel. There i s no evidence for organomegaly or pneumoperitoneum. The osseous structures are intact. No abnormal calcifications are present. Fecal material and gas are demonstrated throughout the colon and rectum. IMPRESSION: Nonspecific bowel gas pattern without radiographic evidence for acute process.
--- NOTE | 2023-07-10 20:01 | US ---
EXAMINATION TYPE: US scrotum with doppler. Grayscale and color Doppler Duplex imaging performed of katie moss scrotum. DATE OF EXAM: 07/10/2023 COMPARISON: NONE CLINICAL INDICATION: Male, 27 years old with history of testicular pain; Scrotum pain, worse on the l eft x 1 week EXAM MEASUREMENTS: TESTICLES: Right Testicle: 5.0 x 2.3 x 3.7 cm Left Testicle: 4.3 x 2.1 x 3.5 cm EPIDIDYMIS HEAD: Right Epididymis: 1.3 cm Left Epididymis: not visualized Doppler performed to assess for testicular vascularity; good bilateral color flow and waveforms are s een. There is no evidence of testicular torsion. Presence of hydroceles: no Presence of varicoceles: yes, left IMPRESSION: 1. No evidence for intratesticular mass. 2. Left varicocele. 3. Appropriate arterial and venous spectral waveforms to the testes.
[2023-07-10 20:06] LABS: Appearance,Urine Clear (Clear); Bilirubin,Urine Negative (Negative); Blood,Urine Negative (Negative); Color,Urine Light Yellow; Glucose,Urine (UA) Negative (Negative); Ketones,Urine Negative (Negative); Leukocyte Esterase,Urine Negative (Negative); Nitrite,Urine Negative (Negative); Protein,Urine Negative (Negative); Specific Gravity,Urine 1.009 (1.001-1.035); Urobilinogen,Urine <2.0 mg/dL (<2.0)
[2023-07-10 21:20] VITALS: BP 142/89; PULSE 79; TEMP 98.4
== END 2023-07-10 21:21 | disposition home or self-care (01) ==
LOC: EC 17:34
DX: I86.1 Scrotal varices (principal); I10 Essential (primary) hypertension; F17.200 Nicotine dependence, unspecified, uncomplicated; F12.90 Cannabis use, unspecified, uncomplicated
CPT/HCPCS: 36415; 74018; 76870; 80053; 81003; 85025; 93975; 99284

== ENCOUNTER 2023-07-31 23:43 | Emergency (ER) | payer OTHER ==
[2023-07-31 23:59] VITALS: TEMP 97.6
[2023-08-01] MEDS ORDERED: SODIUM CHLORIDE 0.9% 1,000 ML IV STA (00:05)
[2023-08-01] MEDS ORDERED: LORazepam 2 MG/ML INJ IV STA (00:05)
--- NOTE | 2023-08-01 00:14 | ED ---
General Adult HPI - General Chief complaint: Arrhythmia/Palpitations Stated complaint: Heart racing Time Seen by Provider: 07/31/23 23:50 Source: patient Mode of arrival: ambulatory Limitations: no limitations - History of Present Illness Initial comments: Dictation was produced using [employer] dictation software. please excuse any grammatical, word or spelling errors. Chief Complaint: 27-year-old male with no significant comorbidities presents to the ER with palpitations after ingesting second of the mushrooms in her want to both History of Present Illness: Patient 27-year-old male he is not significant comorbidities she had some psychedelic mushrooms and mandible marijuana. He states he's had this before with no reactions. Tonight he had his usual amount started to feel palpitations. He states that he had refills over his left arm felt. Arm symptoms lasted only a few seconds and resolved. Patient is a history of cardiac disease. The ROS documented in this emergency department record has been reviewed and confirmed by me. Those systems with pertinent positive or negative responses have been documented in the HPI. All other systems are other negative and/or noncontributory. - Related Data Previous Rx's Medication Instructions Recorded Ibuprofen [Motrin] 600 mg PO Q8HR PRN #30 tab 01/04/20 methylPREDNISolone [Medrol Dose 4 mg PO DIRECTED #1 pack 01/04/20 Pack] hydroCHLOROthiazide [Hydrodiuril] 25 mg PO DAILY #60 tab 03/22/23 Allergies Allergy/AdvReac Type Severity Reaction Status Date / Time No Known Allergies Allergy Verified 07/31/23 23:47 Review of Systems ROS Statement: Those systems with pertinent positive or pertinent negative responses have been documented in the HPI. ROS Other: All systems not noted in ROS Statement are negative. Past Medical History Past Medical History: Hypertension History of Any Multi-Drug Resistant Organisms: None Reported Past Surgical History: No Surgical Hx Reported Past Psychological History: No Psychological Hx Reported Smoking Status: Current every day smoker Past Alcohol Use History: Occasional Past Drug Use History: Marijuana General Exam - General Exam Comments Initial Comments: PHYSICAL EXAM: General Impression: Alert and oriented x3, not in acute distress HEENT: Normocephalic atraumatic, extra-ocular movements intact, pupils equal and reactive to light bilaterally, mucous membranes moist. Cardiovascular: Tachycardic Chest: Able to complete full sentences, no retractions, no tachypnea Abdomen: abdomen soft, non-tender, non-distended, no organomegaly Musculoskeletal: Pulses present and equal in all extremities, no peripheral edema Motor: no focal deficits noted Neurological: CN II-XII grossly intact, no focal motor or sensory deficits noted Skin: Intact with no visualized rashes Psych: Normal affect and mood Limitations: no limitations Course Vital Signs 07/31/23 08/01/23 08/01/23 23:44 00:15 00:39 Temperature 97.6 F Pulse Rate 133 H 98 Pulse Rate [ 125 H Supine Dry Chain Offbearer] Respiratory 20 17 Rate Blood Pressure 162/87 151/87 O2 Sat by Pulse 100 97 Oximetry 08/01/23 01:33 Temperature Pulse Rate 98 Pulse Rate [ Supine Dry Chain Offbearer] Respiratory 23 Rate Blood Pressure 115/67 O2 Sat by Pulse 95 Oximetry EKG Findings - EKG Comments: EKG Findings:: My EKG interpretation: Ventricular rate 126, sinus tachycardia, MD interval 150, QRS 92, QTC 471. No MD prolongation, no QTC prolongation, no ST or T-wave changes noted. . Overall, this EKG is unremarkable Medical Decision Making - Medical Decision Making Was pt. sent in by a medical professional or institution (, PA, SCHOOL TRANSPORTATION DIRECTOR, urgent care, hospital, or longterm...) When possible be specific @ -No Did you speak to anyone other than the patient for history (EMS, parent, family, police, friend...)? What history was obtained from this source @ -No Did you review nursing and triage notes (agree or disagree)? Why? @ -I reviewed and agree with nursing and triage notes Were old charts reviewed (outside hosp., previous admission, EMS record, old EKG, old radiological studies, urgent care reports/EKG's, longterm records)? Report findings @ -No old charts were reviewed Differential Diagnosis (chest pain, altered mental status, abdominal pain women, abdominal pain men, vaginal bleeding, musculoskeletal, weakness, fever, dyspnea, syncope, headache, dizziness, GI bleed, back pain, seizure, CVA, palpatations, mental health)? @ - Differential Palpitations: Ventricular arrhythmias, atrial arrhythmias, myocardial infarction, anemia, thyrotoxicosis, electrolyte imbalance, hypokalemia, pulmonary embolism, pulmonary disease, drugs, alcohol, anxiety, stress.... This is not meant to be an all-inclusive list. EKG interpreted by me (3pts min.). @ -see above X-rays interpreted by me (1pt min.). @ -None done CT interpreted by me (1pt min.). @ -None done U/S interpreted by me (1pt. min.). @ -None done What testing was considered but not performed or refused? (CT, X-rays, U/S, labs)? Why? @ -None What meds were considered but not given or refused? Why? @ -None Did you discuss the management of the patient with other professionals (professionals i.e. DrGonzales, PA, SCHOOL TRANSPORTATION DIRECTOR, lab, RT, psych nurse, mental health social worker, cloth stretcher, teacher, accounts officer, manager case)? Give summary @ -No Was smoking cessation discussed for >3mins.? @ -No Was critical care preformed (if so, how long)? @ -No Were there social determinants of health that impacted care today? How? (Homelessness, low income, unemployed, alcoholism, drug addiction, transportation, low edu. Level, literacy, decrease access to med. care, penitentiary, rehab)? @ -No Was there de-escalation of care discussed even if they declined (Discuss DNR or withdrawal of care, Hospice)? DNR status @ -No What co-morbidities impacted this encounter? (DM, HTN, Smoking, COPD, CAD, Cancer, CVA, ARF, Chemo, Hep., AIDS, mental health diagnosis, sleep apnea, morbid obesity)? @ -None Was patient admitted / discharged? Hospital course, mention meds given and route, prescriptions, significant lab abnormalities, going to OR and other pertinent info. @ -27-year-old male presents with palpitations after ingesting psychedelic mushrooms and edible marijuana. Vital signs upon arrival shows tachycardia 133. EKG was sinus tachycardia. Patient given Ativan and IV fluids. Observed in emergency department with resolution of tachycardia. Patient provided bedside with stable medical condition. Patient be discharged. Undiagnosed new problem with uncertain prognosis? @ -No Drug Therapy requiring intensive monitoring for toxicity (Heparin, Nitro, Insulin, Cardizem)? @ -No Were any procedures done? @ -No Diagnosis/symptom? Acute, or Chronic, or Acute on Chronic? Uncomplicated (without systemic symptoms) or Complicated (systemic symptoms)? @ -palpitations Side effects of treatment? @ -No Exacerbation, Progression, or Severe Exacerbation? @ -No Poses a threat to life or bodily function? How? (Chest pain, [place], [place], pneumonia, PE, COPD, DKA, ARF, appy, cholecystitis, CVA, Diverticulitis, Homicidal, Suicidal, threat to staff... and all critical care pts) @ -No Disposition Clinical Impression: Palpitations Disposition: HOME SELF-CARE Condition: Good Instructions (If sedation given, give patient instructions): Heart Palpitations (ED) Is patient prescribed a controlled substance at d/c from ED?: No Referrals: Ramy Ballard DO [Primary Care Provider] - 1-2 days Time of Disposition: 02:22
[2023-08-01 02:41] VITALS: BP 112/64; PULSE 89; RESP 18
== END 2023-08-01 02:30 | disposition home or self-care (01) ==
LOC: EC 23:43
DX: R00.2 Palpitations (principal); I10 Essential (primary) hypertension; F17.200 Nicotine dependence, unspecified, uncomplicated; F12.90 Cannabis use, unspecified, uncomplicated
CPT/HCPCS: 93005; 96361; 96374; 99284

== ENCOUNTER → 2023-08-10 | Outpatient (CLI) | payer OTHER ==
--- NOTE | 2023-08-10 12:22 | CA ---
Exercise Stress Test Report Name: [place] Exam Date: 08/10/2023 11:27 Exam Location: [place] Stress Ht (in): 72 Wt (lb): 310 BSA: 2.57 Ordering Phys: Ramy Ballard DO Referring Phys: Hermelinda Brown [facility] Technologist: Armando Lugo Age: 27 Gender: M : 1995 Procedure CPT: 99654 Indications: R07.89 other chest pain ICD-10 Codes: Patient History: Chest pain and hypertension Medications: HZTZ,,,,, Meds past 24 hrs: Pretest Chest Pain: STRESS TEST Derian Protocol Exercise Duration (min:sec): 10:[address] Depressions (mm): Angina Score: Gaviria Score: Resting HR (bpm): 82 Peak HR (bpm): 162 Resting BP (mmHg): 105 / 70 Peak BP (mmHg): 153 / 71 MPHR: 191 Target HR: 162 % MPHR: 85 METS: 11.2 Total Dose: Peak Dose: Atropine: Double Product: 88975 BP Response: Stress Termination: MAX EXERTION/TARGET HR Stress Symptoms: DIFFICULTY IN BREATHING Stress Summary: ECG ANALYSIS Resting ECG: Normal sinus rhythm Stress ECG: No ECG evidence of ischemia with exercise. No arrythmias or ectopic beats CONCLUSIONS Good exercise tolerance for patient's age achieving 11.2 minutes Non ischemic ECG response to exercise Overall Normal treadmill stress test Dr Edward Luna (Electronically Signed) Final Date: 10 August 2023 12:21
== END | disposition home or self-care (01) ==
LOC: RADNMMAIN 10:40
PROVIDERS: ATTEND Internal Medicine
DX: R07.89 Other chest pain (principal); I10 Essential (primary) hypertension
CPT/HCPCS: 93017

== ENCOUNTER → 2023-08-15 | Outpatient (CLI) | payer OTHER ==
--- NOTE | 2023-08-15 11:41 | CT ---
EXAMINATION TYPE: CT angio abdomen pelvis DATE OF EXAM: 08/15/2023 COMPARISON: None HISTORY: LLQ pain CT DLP: 2739 mGycm Examination of the solid and hollow viscera is limited given the lack of contrast. FINDINGS: LUNG BASES: No evidence for nodule. No evidence for infiltrate. LIVER/GB: The gallbladder is unremarkable. No space-occupying hepatic lesion. PANCREAS: No pancreatic mass identified. No inflammatory process seen. SPLEEN: No evidence for splenomegaly. No intrasplenic lesions seen. ADRENALS: No adrenal nodules identified. No evidence for thickening. KIDNEYS: No evidence for renal mass. No nephrolithiasis. No hydronephrosis. BOWEL: Appendix has a normal appearance. No evidence of bowel obstruction. No inflammatory process. Lymph nodes: No evidence for adenopathy greater than 1 cm. Abdominal aorta: Atheromatous changes seen. No evidence for aneurysm. Genital organs: No significant abnormality. Other: No significant abnormality. IMPRESSION: NO SIGNIFICANT ABNORMALITY TO ACCOUNT FOR PATIENT'S SYMPTOMS.
== END | disposition home or self-care (01) ==
LOC: RADCTMAIN 10:04
PROVIDERS: ATTEND Internal Medicine
DX: R10.32 Left lower quadrant pain (principal); R10.10 Upper abdominal pain, unspecified
CPT/HCPCS: 74174; Q9967

== ENCOUNTER → 2023-08-22 | Outpatient (CLI) | payer OTHER ==
[2023-08-22 19:24] LABS: Gliadin AB IgA, Deaminated Negative (Negative); Gliadin AB IgA, Unit <0.5 U/mL; Gliadin AB IgG, Deaminated Negative (Negative); Gliadin AB IgG, Unit <0.4 U/mL
== END | disposition home or self-care (01) ==
LOC: LABWHC1 09:55
PROVIDERS: ATTEND Internal Medicine
DX: R10.10 Upper abdominal pain, unspecified (principal)
CPT/HCPCS: 36415; 83516

== ENCOUNTER 2023-11-23 13:28 | Day surgery (SDC) | payer SELFPAY ==
[2023-11-23] MEDS: LACTATED RINGERS 1,000 ML IV ONE (13:47)
[2023-11-23] MEDS ORDERED: fentaNYL (PF) 50 MCG/ML 2 ML AMP ONE (14:27)
[2023-11-23] MEDS ORDERED: LIDOCAINE 2% (PF) 20 MG/ML 5 ML VIAL ONE (14:27)
[2023-11-23] MEDS ORDERED: PROPOFOL 10 MG/ML 20 ML VIAL IV ONE (14:27)
[2023-11-23 14:30] VITALS: RESP 18; TEMP 97
--- NOTE | 2023-11-23 14:44 | P.PCN ---
Date of Procedure: 11/23/23 Procedure(s) Performed: Brief history: Patient is a pleasant 28-year-old white male scheduled for an elective upper endoscopy as well as colonoscopy as a part of evaluation of abdominal pain, chronic diarrhea and progressive weight loss of 30 pounds in the last 8 months duration. Procedure performed: Esophagogastroduodenoscopy biopsy Colonoscopy with biopsy Preoperative diagnosis: Abdominal pain/chronic diarrhea/progressive weight loss of 8 months duration Anesthesia: MAC Procedure: After informed consent was obtained from the patient was brought into the endoscopy unit and IV sedation was administered by anesthesia under continuous monitoring. Initially upper endoscopy was done. The Olympus GF 160 video endoscope was inserted inserted into the mouth and esophagus intubated without any difficulty and was gradually advanced into the stomach and duodenum and carefully examined. The bulb and second part of the duodenum appeared normal. Biopsies were done from the duodenum rule out celiac disease. The scope was then withdrawn into the stomach adequately insufflated with air and upon careful examination the antrum had moderate to severe erosive gastritis and biopsies were done from this area. Because of the body, cardia and fundus appeared normal. The scope was then withdrawn into the esophagus. The GE junction was located at 40 cm to the incisors. It appeared regular with no erythema erosions or ulcerations. Rest of the esophagus appeared normal. Patient tolerated the p rocedure well. At this time the patient continued to remain sedation. Initial digital rectal examination was normal. Olympus CF 160 video colonoscope was then inserted into the rectum and gradually advanced to the cecum without any difficulty. Careful examination was performed as the scope was gradually being withdrawn. The prep was fair. It was intubated at 20 cm visualized and appeared normal. Biopsies were done from this area. The cecum, ascending colon, transverse colon, descending colon, sigmoid colon and rectum appeared normal. Biopsies were done from the ascending and descending colon to rule microscopic/collagenous colitis. Retroflexion was performed in the rectum and no lesions were noted. Patient tolerated the procedure well. Impression: 1. Upper endoscopy revealed moderate to severe antral erosive gastritis 2. Colonoscopy was within normal limits with no evidence of colorectal neoplasia. Recommendations: Findings of this examination were discussed with the patient as well as his family. He was advised to follow-up with the biopsy results. He will be seen in the office in 2 to 3 weeks.
[2023-11-23 16:12] VITALS: BP 115/72; PULSE 68
== END 2023-11-23 15:41 | disposition home or self-care (01) ==
LOC: ORWHC2ENDO 13:28
PROVIDERS: ATTEND Internal Medicine Gastroenterology
DX: K29.60 Other gastritis without bleeding (principal); K29.80 Duodenitis without bleeding; K52.839 Microscopic colitis, unspecified; I10 Essential (primary) hypertension; F17.210 Nicotine dependence, cigarettes, uncomplicated; K21.9 Gastro-esophageal reflux disease without esophagitis; Z79.899 Other long term (current) drug therapy
CPT/HCPCS: 88305; 88342; 45380; 43239; J3010; J2704; J2001